=== PATIENT | female | born 2000 | race African-American/Black ===

== ENCOUNTER 2022-10-10 17:39 | Emergency (ER) | payer OTHER | END 2022-10-10 19:35 | disposition home or self-care (01) | LOC: DL.ED 17:39 | DX: S93.492A Sprain of other ligament of left ankle, initial encounter (principal); X50.1XXA Overexertion from prolonged static or awkward postures, initial encounter; Y93.01 Activity, walking, marching and hiking | CPT/HCPCS: 73630-LT; 99283 ==